=== PATIENT | male | born 1965 | race African-American/Black ===

== ENCOUNTER 2019-09-14 09:39 | Inpatient (IN) | payer OTHER ==
--- NOTE | 2019-09-14 09:59 | BHS.RME ---
Substance Use & Tx History - Substance Use History Alcohol Substance amount: 1 pint vodka + beers Frequency of use: Daily Substance route: Oral Date of Last Use: 09/14/19 (1am) Cocaine- Powder Substance amount: $50 Frequency of use: Daily Substance route: Inhalation (ex: sniffing or snorting) Date of Last Use: 09/14/19 Marijuana/Hashish Substance amount: $10 Frequency of use: Daily Substance route: Smoking Date of Last Use: 09/14/19 Nicotine Substance amount: 1/2 pack Frequency of use: Daily Substance route: Smoking Date of Last Use: 09/14/19 Physical/Psych/Mental Status - Behavior General Behavior: Increased activity (restlessness, agitation) Eye Contact: Normal - Cooperativeness Cooperativeness: Cooperative - Thinking Thought Processes: Tight, Logical, Goal Directed - Physical Health Problems Is patient presently having any pain?: No Does patient presently have any injuries (include location): No Does patient currently have a fever: No Is patient : No CIWA Nausea/Vomitin Muscle Tremors: 4-Moderate,w/Arms Extend Anxiety: 4-Mod. Anxious/Guarded Agitation: 4-Moderately Restless Paroxysmal Sweats: 4-Forehead w/Sweat Beads Orientation: 0-Oriented Tacttile Disturbances: 0-None Auditory Disturbances: 0-None Visual Disturbances: 0-None Headache: 2-Mild CIWA-Ar Total Score: 21
[2019-09-14 11:01] VITALS: BMI 22.6
--- NOTE | 2019-09-14 11:04 | HP ---
CIWA Score Nausea/Vomitin Muscle Tremors: 4-Moderate,w/Arms Extend Anxiety: 4-Mod. Anxious/Guarded Agitation: 4-Moderately Restless Paroxysmal Sweats: 4-Forehead w/Sweat Beads Orientation: 0-Oriented Tacttile Disturbances: 0-None Auditory Disturbances: 0-None Visual Disturbances: 0-None Headache: 2-Mild CIWA-Ar Total Score: 21 - Admission Criteria OASAS Guidelines: Admission for Medically Managed Detox: Requires at least one of the followin. CIWA greater than 12 2. Seizures within the past 24 hours 3. Delirium tremens within the past 24 hours 4. Hallucinations within the past 24 hours 5. Acute intervention needed for co occurring medical disorder 6. Acute intervention needed for co occurring psychiatric disorder 7. Severe withdrawal that cannot be handled at a lower level of care (continued vomiting, continued diarrhea, abnormal vital signs) requiring intravenous medication and/or fluids 8. Admitting History and Physical - Admission Chief Complaint: " I am sick and I need to stop drinking." History of Present Illness: 54 year old male with history of alcohol dependence in moderate to severe withdrawal. Cocaine use disorder, Cannabis use disorder, Nicotine Dependence. He was drinking last night and blacked out and was brought to [facility] where he was not given any meds but referred here for detox. Alcohol: 1 pint vodka and beers, started drinking at age 13 and last used 09/14/19 at 1AM today, blackouts are multiple, endorses the need for eye director property daily. Cocaine: $50 twice weekly, started at 21 [place], last used 09/14/19 at 1AM Marijuan: $10 weekly, started smoking at age 13 and last used today Nicotine: 1/2 pack daily, started at age 12 PMH: Chronic Low Back Pain Psurg: B?L eye surgery for ptosis upper lids, Lft Ing Herniorrhaphy Psych: Depression, Anxiety, Bipolar (no meds- last taken 1 year ago), denies any current suicidal ideation or homicidal ideation. Patient is homeless and in [facility]. He has no legal issues. CIWA=21 He meets criteria for detox due to his poor recovery environment, and untreated psychiatric co-morbidity. History Source: Patient Limitations to Obtaining History: No Limitations - Past Medical History Musculoskeletal: Yes: Chronic low back pain - Past Surgical History Additional Past Surgical History: BlL eye surgery, L Ing Hernia repair - Smoking History Smoking history: Current every day smoker Have you smoked in the past 12 months: Yes Aproximately how many cigarettes per day: 10 - Alcohol/Substance Use Hx Alcohol Use: Yes History of Substance Use: reports: Cocaine, Marijuana - Social History Usual Living Arrangement: Yes: Alone Do you think of yourself as: Straight/Heterosexual ADL: Independent Occupation: Unemployed, construction History of Recent Travel: No Admission [facility] Allergies/Adverse Reactions: Allergies Allergy/AdvReac Type Severity Reaction Status Date / Time amoxicillin Allergy Verified 06/09/18 13:49 Penicillins Allergy Verified 06/09/18 13:48 Exam Limitations: No Limitations - Ebola screening Have you traveled outside of the country in the last 21 days: No Have you had contact with anyone from an Ebola affected area: No Have you been sick,other than usual withdrawal symptoms: No Do you have a fever: No - Review of Systems Constitutional: Chills, Diaphoresis, Unintentional Wgt. Loss EENT: reports: No Symptoms Reported Respiratory: reports: No Symptoms reported Cardiac: reports: No Symptoms Reported GI: reports: No Symptoms Reported : reports: No Symptoms Reported Musculoskeletal: reports: No Symptoms Reported Integumentary: reports: No Symptoms Reported Neuro: reports: No Symptoms reported Endocrine: reports: No Symptoms Reported Hematology: reports: No Symptoms Reported Psychiatric: reports: Judgement Intact, Mood/Affect Appropiate, Orientated x3, Agitated, Anxious, Depressed Other Systems: Reviewed and Negative Patient History - Patient Medical History Hx Anemia: No Hx Asthma: No Hx Chronic Obstructive Pulmonary Disease (COPD): No Hx Cancer: No Hx Cardiac Disorders: No Hx Congestive Heart Failure: No Hx Hypertension: No Hx Hypercholesterolemia: No Hx Pacemaker: No HX Cerebrovascular Accident: No Hx Seizures: No Hx Dementia: No Hx Diabetes: No Hx Gastrointestinal Disorders: No Hx Liver Disease: No Hx Genitourinary Disorders: No Hx Sexually Transmitted Disorders: No Hx Renal Disease (ESRD): No Hx Thyroid Disease: No Hx Human Immunodeficiency Virus (HIV): No (last 05/16 negative) Hx Hepatitis C: No Hx Depression: No Hx Suicide Attempt: No Hx Bipolar Disorder: No Hx Schizophrenia: No - Patient Surgical History Hx Abdominal Surgery: Yes (left inguinal hernia repair in 1999 X2) - PPD History Previous Implant?: Yes Documented Results: Positive w/o proof Implanted On Prior [facility] Admission?: No PPD to be Administered?: Yes - Smoking Cessation Smoking history: Current every day smoker Have you smoked in the past 12 months: Yes Aproximately how many cigarettes per day: 10 Cigars Per Day: 0 Hx Chewing Tobacco Use: No Initiated information on smoking cessation: Yes 'Breaking Loose' booklet given: 09/14/19 - Substances abused Alcohol Substance route: Oral Frequency: Daily Amount used: 1 pint vodka + Beers Age of first use: 13 Date of last use: 09/14/19 Cocaine Substance route: Inhalation Frequency: 1-2 times per week Amount used: $50 Age of first use: 21 Date of last use: 09/14/19 Marijuana/Hashish Substance route: Smoking Frequency: 1-2 times per week Amount used: $10 Age of first use: 13 Date of last use: 09/14/19 Admission Physical Exam S - Physical General Appearance: Yes: Moderate Distress, Severe Distress, Thin, Tremorous, Irritable, Sweating, Anxious HEENTM: Yes: EOMI, Hearing grossly Normal, Normal ENT Inspection, Normocephalic, Normal Voice, ANTHONY, Pharynx Normal, Tm's normal Respiratory: Yes: Chest Non-Tender, Lungs Clear, Normal Breath Sounds, No Respiratory Distress, No Accessory Muscle Use Neck: Yes: No masses,lesions,Nodules, Supple, Trachea in good position Breast: Yes: Within Normal Limits Cardiology: Yes: Regular Rhythm, S1, S2, Tachycardia Abdominal: Yes: Normal Bowel Sounds, Non Tender, Flat, Soft Genitourinary: Yes: Within Normal Limits, Other (scar fron Left Ing Hernia repair) Back: Yes: Normal Inspection Musculoskeletal: Yes: full range of Motion, Gait Steady, Pelvis Stable Extremities: Yes: Normal Capillary Refill, Normal Range of Motion, Non-Tender Neurological: Yes: harness placer II-XII NML intact, Fully Oriented, Alert, Motor Strength 5/5, Normal Mood/Affect, Normal Response Integumentary: Yes: Normal Color, Dry, Warm Lymphatic: Yes: Within Normal Limits - Diagnostic (1) Depression Current Visit: Yes Status: Acute (2) Alcohol dependence with uncomplicated withdrawal Current Visit: No Status: Acute (3) Cocaine dependence Current Visit: Yes Status: Acute (4) Nicotine dependence Current Visit: Yes Status: Acute (5) Positive PPD Current Visit: Yes Status: Chronic (6) Bipolar 1 disorder Current Visit: Yes Status: Acute Cleared for Admission BHS - Detox or Rehab [facility] Level of Care: Medically Managed Detox Regimen/Protocol: Librium Claeared for Rehab Admission: No Screened but not Admitted - Documentation of Visit Screened but not Admitted: No Breathalyzer - Breathalyzer Breathalyzer: 0 (1 am) Urine Drug Screen - Test Device Lot number: [id number] Expiration date: 01/28/20 - Control Is test valid?: Yes - Results Drug screen NEGATIVE: No Urine drug screen results: SEB-Cocaine Inpatient Rehab Admission - Rehab Decision to Admit Inpatient rehab admission?: No
[2019-09-14] MEDS ORDERED: MENTHOL/PHENOL 1 EACH UD MM PRN (11:11)
[2019-09-14] MEDS ORDERED: METHOCARBAMOL 500 MG TABLET PO PRN (11:11)
[2019-09-14] MEDS ORDERED: IBUPROFEN 400 MG TABLET (FP) PO PRN (11:11)
[2019-09-14] MEDS ORDERED: chlordiazePOXIDE HCL 25 MG CAPSULE PO PRN (11:11)
[2019-09-14] MEDS ORDERED: MAGNESIUM HYDROX 2400MG/30ML ORAL SUSPENSION 30 ML CUP PO PRN (11:11)
[2019-09-14] MEDS ORDERED: ONDANSETRON *ODT* 4 MG TABLET SL ONE (11:11)
[2019-09-14] MEDS ORDERED: BISMUTH SUBSALICYLATE 524 MG/30 ML UD PO PRN (11:11)
[2019-09-14] MEDS ORDERED: MAGNESIUM CITRATE 300 ML BOTTLE PO PRN (11:11)
[2019-09-14] MEDS ORDERED: NICOTINE POLACRILEX 2 MG GUM BUC PRN (11:11)
[2019-09-14] MEDS ORDERED: MAG HYDROX/AL HYDROX/SIMETH 30 ML UNIT-DOSE CUP PO PRN (11:11)
[2019-09-14] MEDS ORDERED: ACETAMINOPHEN 325 MG TABLET (FP) PO PRN ×2 (11:11)
[2019-09-14] MEDS ORDERED: chlordiazePOXIDE HCL 25 MG CAPSULE PO STA (11:15)
[2019-09-14] MEDS ORDERED: AMMONIUM LACTATE 12% LOTION 225 GM BOTTLE TP SCH (11:15)
[2019-09-14] MEDS: NICOTINE 7 MG/24 HOURS TOPICAL PATCH TD SCH (12:31)
[2019-09-14] MEDS: PRENATAL VITAMINS W/ FOLIC ACID TABLET (FP) PO SCH (12:31)
[2019-09-14] MEDS ORDERED: AMMONIUM LACTATE 12% LOTION 225 GM BOTTLE TP PRN (13:00)
[2019-09-14] MEDS: chlordiazePOXIDE HCL 25 MG CAPSULE PO SCH ×3 (13:37→22:23)
[2019-09-14] MEDS: hydrOXYzine PAMOATE 25 MG CAPSULE (FP) PO SCH ×3 (13:42→22:23)
[2019-09-14] MEDS: PANTOPRAZOLE 40 MG TABLET PO SCH (13:42)
--- NOTE | 2019-09-14 14:19 | CONSULT ---
[facility] Psychiatric Consult - Data Date of interview: 09/14/19 Admission source: [facility] Identifying data: First visit to [facility] and admission to [address] [place] [address] for this 54 y/o AA male self-referred for detoxification treatment. JENNIFER issues : alcohol, cannabis, cocaine, nicotine. Patient is single, no dependents, homeless (halfway), unemployed and supported on SSI benefits. Substance Abuse History: Discussed with the patient. JENNIFER profile as follows : Smoking history: Current every day smoker. Have you smoked in the past 12 months: Yes. Aproximately how many cigarettes per day: 10. Cigars Per Day: 0. Hx Chewing Tobacco Use: No. Initiated information on smoking cessation: Yes. 'Breaking Loose' booklet given: 09/14/19. - Substances abused. Alcohol. Substance route: Oral. Frequency: Daily. Amount used: 1 pint vodka + Beers. Age of first use: 13. Date of last use: 09/14/19. Cocaine. Substance route: Inhalation. Frequency: 1-2 times per week. Amount used: $50. Age of first use: 21. Date of last use: 09/14/19. Marijuana/Hashish. Substance route: Smoking. Frequency: 1-2 times per week. Amount used: $10. Age of first use: 13. Date of last use: 09/14/19 Medical History: Medical profile is remarkable for history of eye surgery (both eyes) for bilateral ptosis, chronic lumbar pain (herniated discs L1-L5) and antecedent of left inguinal herniorraphy (1999). Psychiatric History: Patient aknowledges history of psychiatric hospitalizations but he declines to provide names of institutions or circumstances of admission. Mr Moreira is a marginally cooperative and irritable historian. " They keep on asking me the same questions. I can barely catch some sleep." He does not recall his psychiatric diagnosis. " I don't know. I don't have a mental problem." Patient denies being on psychiatric medications at this time. He does, however, report that trazodone has been prescribed recently to him by " a psychiatrist somewhere." No current contact with OPD care. He denies history of suicide attempts. Physical/Sexual Abuse/Trauma History: Not discussed. Patient declines. Additional Comment: Urine drug screen results: SEB-Cocaine. Noted. Mental Status Exam - Mental Status Exam Alert and Oriented to: Time, Place, Person Cognitive Function: Good Patient Appearance: Unkempt, Disheveled Mood: Hostile, Nervous, Withdrawn, Irritable Affect: Mood Congruent, Constricted Patient Behavior: Fatigued, Uncooperative, Guarded Speech Pattern: Clear Voice Loudness: Normal Thought Process: Intact, Goal Oriented Thought Disorder: Not Present Hallucinations: Denies Suicidal Ideation: Denies Homicidal Ideation: Denies Insight/Judgement: Poor Sleep: Poorly (wants trazodone ), Difficulty falling asleep Gait/Station: Other (not observed; in bed for entire length of interview) Psychiatric Findings - Problem List ([place] 1, 2,3) (1) Alcohol dependence with uncomplicated withdrawal Current Visit: Yes Status: Acute (2) Cocaine dependence Current Visit: Yes Status: Chronic (3) Nicotine dependence Current Visit: Yes Status: Chronic (4) Substance induced mood disorder Current Visit: Yes Status: Chronic (5) Insomnia Current Visit: Yes Status: Chronic - Initial Treatment Plan Initial Treatment Plan: Psychoeducation. Support. Sleep hygiene. Detoxification in progress. At the patient's request, trazodone 100 mg po hs. Ordered. Side effects/benefits are discussed with patient. Made aware of the risk of priapism. Mr Moreira grants his consent (verbal) for trazodone. Observation.
[2019-09-14 14:56] LABS: MCH 27.6 pg (25.7-33.7); MCHC 31.8 g/dl (32.0-35.9); MEAN CELL VOLUME 86.8 fl (80-96); MEAN PLT VOLUME 9.4 fl (7.5-11.1); PLATELET COUNT 225 K/MM3 (134-434); RBC 5.07 M/mm3 (4.00-5.60); RDW 15.8 % (11.9-15.9)
[2019-09-14 15:14] LABS: BILIRUBIN,TOTAL 0.8 mg/dL (0.2-1); BLOOD UREA NITROGEN 16.9 mg/dL (7-18); CALCIUM 10.1 mg/dL (8.5-10.1); CREATININE 1.2 mg/dL (0.55-1.3); POTASSIUM 4.4 mmol/L (3.5-5.1); TOT PROT 7.7 g/dl (6.4-8.2)
[2019-09-14] MEDS ORDERED: PATIENT'S OWN MEDICATION (NON-FORMULARY) (Ranitidine [Zantac -] 150 MG) PO SCH (22:00)
[2019-09-14] MEDS: traZODone HCL 100 MG TABLET (FP) PO SCH (22:23)
[2019-09-14] MEDS: MELATONIN 5 MG TABLETS PO SCH (22:23)
[2019-09-14] MEDS: THIAMINE HCL 100 MG TABLET (FP) PO SCH (22:23)
[2019-09-15] MEDS: chlordiazePOXIDE HCL 25 MG CAPSULE PO SCH ×4 (06:13→22:18)
[2019-09-15] MEDS: hydrOXYzine PAMOATE 25 MG CAPSULE (FP) PO SCH ×5 (06:13→22:17)
[2019-09-15] MEDS: PANTOPRAZOLE 40 MG TABLET PO SCH (10:23)
[2019-09-15] MEDS: NICOTINE 7 MG/24 HOURS TOPICAL PATCH TD SCH (10:23)
[2019-09-15] MEDS: PRENATAL VITAMINS W/ FOLIC ACID TABLET (FP) PO SCH (10:23)
--- NOTE | 2019-09-15 12:56 | PN ---
S CIWA - CIWA Score Nausea/Vomitin-No Nausea/No Vomiting Muscle Tremors: None Anxiety: 3 Agitation: 0-Normal Activity Paroxysmal Sweats: 3 Orientation: 0-Oriented Tacttile Disturbances: 0-None Auditory Disturbances: 0-None Visual Disturbances: 0-None Headache: 2-Mild CIWA-Ar Total Score: 8 BHS Progress Note (SOAP) Subjective: c/o anxiety, sweats, headache, and muscle aches. Objective: 09/15/19 12:49 Vital Signs 09/15/19 09/15/19 05:50 08:42 Temperature 97.7 F 97.7 F Pulse Rate 58 L 62 Respiratory 18 18 Rate Blood Pressure 94/60 126/74 O2 Sat by Pulse 100 Oximetry (%) Laboratory Last Values WBC 6.0 K/mm3 (4.0-10.0) 09/14/19 12:00 RBC 5.07 M/mm3 (4.00-5.60) 09/14/19 12:00 Hgb 14.0 GM/dL (11.7-16.9) 09/14/19 12:00 Hct 44.0 % (35.4-49) 09/14/19 12:00 MCV 86.8 fl (80-96) 09/14/19 12:00 MCH 27.6 pg (25.7-33.7) 09/14/19 12:00 MCHC 31.8 g/dl (32.0-35.9) L 09/14/19 12:00 RDW 15.8 % (11.9-15.9) 09/14/19 12:00 Plt Count 225 K/MM3 (134-434) 09/14/19 12:00 MPV 9.4 fl (7.5-11.1) 09/14/19 12:00 Sodium 140 mmol/L (136-145) 09/14/19 12:00 Potassium 4.4 mmol/L (3.5-5.1) 09/14/19 12:00 Chloride 101 mmol/L (98-107) 09/14/19 12:00 Carbon Dioxide 29 mmol/L (21-32) 09/14/19 12:00 Anion Gap 10 MMOL/L (8-16) 09/14/19 12:00 BUN 16.9 mg/dL (7-18) 09/14/19 12:00 Creatinine 1.2 mg/dL (0.55-1.3) 09/14/19 12:00 Est GFR (CKD-EPI)AfAm 77.88 09/14/19 12:00 Est GFR (CKD-EPI)NonAf 67.19 09/14/19 12:00 Random Glucose 66 mg/dL (74-106) L 09/14/19 12:00 Calcium 10.1 mg/dL (8.5-10.1) 09/14/19 12:00 Total Bilirubin 0.8 mg/dL (0.2-1) 09/14/19 12:00 AST 19 U/L (15-37) 09/14/19 12:00 ALT 21 U/L (13-61) 09/14/19 12:00 Alkaline Phosphatase 96 U/L (45-117) 09/14/19 12:00 Total Protein 7.7 g/dl (6.4-8.2) 09/14/19 12:00 Albumin 4.0 g/dl (3.4-5.0) 09/14/19 12:00 Syphilis Serology Non-reactive (NONREACTIVE) 09/14/19 12:00 Labs noted. Assessment: 09/15/19 12:49 Vital Signs 09/15/19 09/15/19 05:50 08:42 Temperature 97.7 F 97.7 F Pulse Rate 58 L 62 Respiratory 18 18 Rate Blood Pressure 94/60 126/74 O2 Sat by Pulse 100 Oximetry (%) Laboratory Last Values WBC 6.0 K/mm3 (4.0-10.0) 09/14/19 12:00 RBC 5.07 M/mm3 (4.00-5.60) 09/14/19 12:00 Hgb 14.0 GM/dL (11.7-16.9) 09/14/19 12:00 Hct 44.0 % (35.4-49) 09/14/19 12:00 MCV 86.8 fl (80-96) 09/14/19 12:00 MCH 27.6 pg (25.7-33.7) 09/14/19 12:00 MCHC 31.8 g/dl (32.0-35.9) L 09/14/19 12:00 RDW 15.8 % (11.9-15.9) 09/14/19 12:00 Plt Count 225 K/MM3 (134-434) 09/14/19 12:00 MPV 9.4 fl (7.5-11.1) 09/14/19 12:00 Sodium 140 mmol/L (136-145) 09/14/19 12:00 Potassium 4.4 mmol/L (3.5-5.1) 09/14/19 12:00 Chloride 101 mmol/L (98-107) 09/14/19 12:00 Carbon Dioxide 29 mmol/L (21-32) 09/14/19 12:00 Anion Gap 10 MMOL/L (8-16) 09/14/19 12:00 BUN 16.9 mg/dL (7-18) 09/14/19 12:00 Creatinine 1.2 mg/dL (0.55-1.3) 09/14/19 12:00 Est GFR (CKD-EPI)AfAm 77.88 09/14/19 12:00 Est GFR (CKD-EPI)NonAf 67.19 09/14/19 12:00 Random Glucose 66 mg/dL (74-106) L 09/14/19 12:00 Calcium 10.1 mg/dL (8.5-10.1) 09/14/19 12:00 Total Bilirubin 0.8 mg/dL (0.2-1) 09/14/19 12:00 AST 19 U/L (15-37) 09/14/19 12:00 ALT 21 U/L (13-61) 09/14/19 12:00 Alkaline Phosphatase 96 U/L (45-117) 09/14/19 12:00 Total Protein 7.7 g/dl (6.4-8.2) 09/14/19 12:00 Albumin 4.0 g/dl (3.4-5.0) 09/14/19 12:00 Syphilis Serology Non-reactive (NONREACTIVE) 09/14/19 12:00 Labs noted. Plan: continue detox.
[2019-09-15] MEDS: MELATONIN 5 MG TABLETS PO SCH (22:17)
[2019-09-15] MEDS: traZODone HCL 100 MG TABLET (FP) PO SCH (22:17)
[2019-09-15] MEDS: THIAMINE HCL 100 MG TABLET (FP) PO SCH (22:19)
[2019-09-16] MEDS: hydrOXYzine PAMOATE 25 MG CAPSULE (FP) PO SCH ×5 (05:58→22:31)
[2019-09-16] MEDS: chlordiazePOXIDE HCL 25 MG CAPSULE PO SCH ×4 (05:58→22:27)
[2019-09-16] MEDS: NICOTINE 7 MG/24 HOURS TOPICAL PATCH TD SCH (10:15)
[2019-09-16] MEDS: PRENATAL VITAMINS W/ FOLIC ACID TABLET (FP) PO SCH (10:15)
[2019-09-16] MEDS: PANTOPRAZOLE 40 MG TABLET PO SCH (10:15)
--- NOTE | 2019-09-16 11:37 | PN ---
S CIWA - CIWA Score Nausea/Vomitin-Mild Nausea/No Vomiting Muscle Tremors: 2 Anxiety: 3 Agitation: 1-Slight > Activity Paroxysmal Sweats: No Perspiration Orientation: 0-Oriented Tacttile Disturbances: 0-None Auditory Disturbances: 0-None Visual Disturbances: 0-None Headache: 0-None Present CIWA-Ar Total Score: 7 S Progress Note (SOAP) Subjective: 54 years old male admitted on 09/14/19 for alcohol withdrawal sx management treating with librium detox regiment feeling better today less tremor ate breakfast and lunch in room social with peers in day room encourage discussing aftercare with staff [facility] as alcohol recovery [facility] Objective: 09/16/19 11:38 Vital Signs - 24 hr 09/15/19 09/15/19 09/15/19 12:33 16:36 20:39 Temperature 97.6 F 97.5 F L 97.1 F L Pulse Rate 56 L 61 56 L Respiratory 16 18 17 Rate Blood Pressure 102/65 97/62 101/67 O2 Sat by Pulse 99 99 Oximetry (%) 09/16/19 09/16/19 05:37 08:31 Temperature 97.5 F L 97.3 F L Pulse Rate 57 L 55 L Respiratory 16 18 Rate Blood Pressure 99/58 L 100/65 O2 Sat by Pulse 97 Oximetry (%) Laboratory Tests 09/14/19 09/14/19 09/14/19 12:00 12:00 12:00 WBC 6.0 RBC 5.07 Hgb 14.0 Hct 44.0 MCV 86.8 MCH 27.6 MCHC 31.8 L RDW 15.8 Plt Count 225 MPV 9.4 Sodium 140 Potassium 4.4 Chloride 101 Carbon Dioxide 29 Anion Gap 10 BUN 16.9 Creatinine 1.2 Est GFR (CKD-EPI)AfAm 77.88 Est GFR (CKD-EPI)NonAf 67.19 Random Glucose 66 L Calcium 10.1 Total Bilirubin 0.8 AST 19 ALT 21 Alkaline Phosphatase 96 Total Protein 7.7 Albumin 4.0 Syphilis Serology Non-reactive COVID-19 ([facility]) 09/14/19 12:10 WBC RBC Hgb Hct MCV MCH MCHC RDW Plt Count MPV Sodium Potassium Chloride Carbon Dioxide Anion Gap BUN Creatinine Est GFR (CKD-EPI)AfAm Est GFR (CKD-EPI)NonAf Random Glucose Calcium Total Bilirubin AST ALT Alkaline Phosphatase Total Protein Albumin Syphilis Serology COVID-19 (SUSY) Not detected lab noted Assessment: 09/16/19 11:39 alcohol withdrawal Plan: librium regiment
[2019-09-16] MEDS: traZODone HCL 100 MG TABLET (FP) PO SCH (22:27)
[2019-09-16] MEDS: MELATONIN 5 MG TABLETS PO SCH (22:30)
[2019-09-16] MEDS: THIAMINE HCL 100 MG TABLET (FP) PO SCH (22:30)
[2019-09-17] MEDS ORDERED: chlordiazePOXIDE HCL 10 MG CAPSULE PO PRN
[2019-09-17] MEDS: chlordiazePOXIDE HCL 10 MG CAPSULE PO SCH ×4 (07:15→22:27)
[2019-09-17] MEDS: hydrOXYzine PAMOATE 25 MG CAPSULE (FP) PO SCH ×5 (07:16→22:28)
[2019-09-17] MEDS: NICOTINE 7 MG/24 HOURS TOPICAL PATCH TD SCH (10:28)
[2019-09-17] MEDS: PANTOPRAZOLE 40 MG TABLET PO SCH (10:28)
[2019-09-17] MEDS: PRENATAL VITAMINS W/ FOLIC ACID TABLET (FP) PO SCH (10:29)
--- NOTE | 2019-09-17 12:49 | PN ---
S CIWA - CIWA Score Nausea/Vomitin-No Nausea/No Vomiting Muscle Tremors: 1-None Visible, but [place] Anxiety: 1-Mildly Anxious Agitation: 0-Normal Activity Paroxysmal Sweats: 1-Minimal Palms Moist Orientation: 0-Oriented Tacttile Disturbances: 1-Very Mild Itch/Numbness Auditory Disturbances: 0-None Visual Disturbances: 2-Mild Sensitivity Headache: 0-None Present CIWA-Ar Total Score: 6 BHS Progress Note (SOAP) Subjective: 54 years old male admitted on 09/14/19 for alcohol withdrawal sx management treating with librium regiment ate breakfast and lunch in room social with peers in day room less tremor mild anxiety discussed aftercare with staff Objective: 09/17/19 12:53 Vital Signs - 24 hr 09/16/19 09/16/19 09/17/19 17:07 20:53 06:51 Temperature 98.2 F 97.5 F L 98.0 F Pulse Rate 80 67 55 L Respiratory 18 16 18 Rate Blood Pressure 127/72 104/67 99/50 L O2 Sat by Pulse 98 100 97 Oximetry (%) 09/17/19 08:52 Temperature 97.3 F L Pulse Rate 64 Respiratory 16 Rate Blood Pressure 81/50 L O2 Sat by Pulse Oximetry (%) 09/17/19 12:54 Laboratory Tests 09/14/19 09/14/19 09/14/19 12:00 12:00 12:00 WBC 6.0 RBC 5.07 Hgb 14.0 Hct 44.0 MCV 86.8 MCH 27.6 MCHC 31.8 L RDW 15.8 Plt Count 225 MPV 9.4 Sodium 140 Potassium 4.4 Chloride 101 Carbon Dioxide 29 Anion Gap 10 BUN 16.9 Creatinine 1.2 Est GFR (CKD-EPI)AfAm 77.88 Est GFR (CKD-EPI)NonAf 67.19 Random Glucose 66 L Calcium 10.1 Total Bilirubin 0.8 AST 19 ALT 21 Alkaline Phosphatase 96 Total Protein 7.7 Albumin 4.0 Syphilis Serology Non-reactive COVID-19 ([facility]USY) 09/14/19 12:10 WBC RBC Hgb Hct MCV MCH MCHC RDW Plt Count MPV Sodium Potassium Chloride Carbon Dioxide Anion Gap BUN Creatinine Est GFR (CKD-EPI)AfAm Est GFR (CKD-EPI)NonAf Random Glucose Calcium Total Bilirubin AST ALT Alkaline Phosphatase Total Protein Albumin Syphilis Serology COVID-19 (SUSY) Not detected lab noted Assessment: 09/17/19 12:54 alcohol withdrawal Plan: librium regiment CIWA Score - CIWA Score Nausea/Vomitin-No Nausea/No Vomiting Muscle Tremors: 1-None Visible, but [place] Anxiety: 1-Mildly Anxious Agitation: 0-Normal Activity Paroxysmal Sweats: 1-Minimal Palms Moist Orientation: 0-Oriented Tacttile Disturbances: 1-Very Mild Itch/Numbness Auditory Disturbances: 0-None Visual Disturbances: 2-Mild Sensitivity Headache: 0-None Present CIWA-Ar Total Score: 6
[2019-09-17] MEDS: traZODone HCL 100 MG TABLET (FP) PO SCH (22:26)
[2019-09-17] MEDS: MELATONIN 5 MG TABLETS PO SCH (22:28)
[2019-09-17] MEDS: THIAMINE HCL 100 MG TABLET (FP) PO SCH (22:29)
[2019-09-18] MEDS: chlordiazePOXIDE HCL 10 MG CAPSULE PO SCH ×2 (06:58→17:22)
[2019-09-18] MEDS: hydrOXYzine PAMOATE 25 MG CAPSULE (FP) PO SCH ×5 (06:58→22:30)
--- NOTE | 2019-09-18 10:01 | PN ---
S CIWA - CIWA Score Nausea/Vomitin-No Nausea/No Vomiting Muscle Tremors: 1-None Visible, but [place] Anxiety: 1-Mildly Anxious Agitation: 0-Normal Activity Paroxysmal Sweats: No Perspiration Orientation: 0-Oriented Tacttile Disturbances: 0-None Auditory Disturbances: 0-None Visual Disturbances: 1-Very Mild Sensitivity Headache: 0-None Present CIWA-Ar Total Score: 3 BHS Progress Note (SOAP) Subjective: 54 years old male admitted on 09/14/19 for alcohol withdrawal sx management treating with librium detox regiment ate breakfast in room social with peers in day room discussing aftercare with staff mr macedo prefers to go to [email or web address] Objective: 09/18/19 10:03 Vital Signs - 24 hr 09/17/19 09/17/19 09/17/19 12:40 16:26 20:16 Temperature 98.4 F 97.5 F L 97.7 F Pulse Rate 66 65 70 Respiratory 18 16 18 Rate Blood Pressure 106/53 L 105/59 L 107/66 O2 Sat by Pulse 98 96 99 Oximetry (%) 09/18/19 09/18/19 06:24 08:53 Temperature 97.7 F 97.6 F Pulse Rate 64 67 Respiratory 18 18 Rate Blood Pressure 104/60 119/75 O2 Sat by Pulse 99 99 Oximetry (%) Laboratory Tests 09/14/19 09/14/19 09/14/19 12:00 12:00 12:00 WBC 6.0 RBC 5.07 Hgb 14.0 Hct 44.0 MCV 86.8 MCH 27.6 MCHC 31.8 L RDW 15.8 Plt Count 225 MPV 9.4 Sodium 140 Potassium 4.4 Chloride 101 Carbon Dioxide 29 Anion Gap 10 BUN 16.9 Creatinine 1.2 Est GFR (CKD-EPI)AfAm 77.88 Est GFR (CKD-EPI)NonAf 67.19 Random Glucose 66 L Calcium 10.1 Total Bilirubin 0.8 AST 19 ALT 21 Alkaline Phosphatase 96 Total Protein 7.7 Albumin 4.0 Syphilis Serology Non-reactive COVID-19 ([facility]) 09/14/19 12:10 WBC RBC Hgb Hct MCV MCH MCHC RDW Plt Count MPV Sodium Potassium Chloride Carbon Dioxide Anion Gap BUN Creatinine Est GFR (CKD-EPI)AfAm Est GFR (CKD-EPI)NonAf Random Glucose Calcium Total Bilirubin AST ALT Alkaline Phosphatase Total Protein Albumin Syphilis Serology COVID-19 (SUSY) Not detected lab noted Assessment: 09/18/19 10:03 alcohol withdrawal Plan: librium regiment
[2019-09-18] MEDS: PANTOPRAZOLE 40 MG TABLET PO SCH (10:10)
[2019-09-18] MEDS: PRENATAL VITAMINS W/ FOLIC ACID TABLET (FP) PO SCH (10:10)
[2019-09-18] MEDS: NICOTINE 7 MG/24 HOURS TOPICAL PATCH TD SCH (10:10)
[2019-09-18] MEDS: traZODone HCL 100 MG TABLET (FP) PO SCH (22:26)
[2019-09-18] MEDS: MELATONIN 5 MG TABLETS PO SCH (22:30)
[2019-09-18] MEDS: THIAMINE HCL 100 MG TABLET (FP) PO SCH (22:30)
[2019-09-19] MEDS ORDERED: chlordiazePOXIDE HCL 10 MG CAPSULE PO ONE (05:00)
[2019-09-19] MEDS: hydrOXYzine PAMOATE 25 MG CAPSULE (FP) PO SCH ×3 (05:33→09:23)
[2019-09-19 09:04] VITALS: BP 125/68; PULSE 73; TEMP 97.1
[2019-09-19] MEDS: PRENATAL VITAMINS W/ FOLIC ACID TABLET (FP) PO SCH (09:23)
[2019-09-19] MEDS: PANTOPRAZOLE 40 MG TABLET PO SCH (09:23)
[2019-09-19] MEDS: NICOTINE 7 MG/24 HOURS TOPICAL PATCH TD SCH (09:23)
--- NOTE | 2019-09-19 11:27 | DS ---
[facility] Detox Discharge Summary Admission Date: 09/14/19 Discharge Date: 09/19/19 - History Present History: Alcohol Dependence Additional Comments: 54 years old male admitted on 09/18/19 for alcohol withdrawal sx management treated with librium regiment seen by psychiatrist sonia helms mr macedo has completed the librium regimen and is tolerated well alert oriented x 3 speech clearly coherently ambulating steady gaits respiratory clear lung sounds bilaterally on auscultation abdomen soft flat no rebound tenderness extremities full range of motion Pertinent Past History: time for discharge 48 minutes transferred order from detox to rehab - Physical Exam Results Vital Signs: Vital Signs Temperature 97.1 F L 09/19/19 08:56 Pulse Rate 73 09/19/19 08:56 Respiratory Rate 18 09/19/19 08:56 Blood Pressure 125/68 09/19/19 08:56 O2 Sat by Pulse Oximetry (%) 99 09/19/19 06:14 Pertinent Admission Physical Exam Findings: alcohol withdrawal Laboratory Tests 09/14/19 09/14/19 09/14/19 12:00 12:00 12:00 WBC 6.0 RBC 5.07 Hgb 14.0 Hct 44.0 MCV 86.8 MCH 27.6 MCHC 31.8 L RDW 15.8 Plt Count 225 MPV 9.4 Sodium 140 Potassium 4.4 Chloride 101 Carbon Dioxide 29 Anion Gap 10 BUN 16.9 Creatinine 1.2 Est GFR (CKD-EPI)AfAm 77.88 Est GFR (CKD-EPI)NonAf 67.19 Random Glucose 66 L Calcium 10.1 Total Bilirubin 0.8 AST 19 ALT 21 Alkaline Phosphatase 96 Total Protein 7.7 Albumin 4.0 Syphilis Serology Non-reactive COVID-19 ([facility]) 09/14/19 12:10 WBC RBC Hgb Hct MCV MCH MCHC RDW Plt Count MPV Sodium Potassium Chloride Carbon Dioxide Anion Gap BUN Creatinine Est GFR (CKD-EPI)AfAm Est GFR (CKD-EPI)NonAf Random Glucose Calcium Total Bilirubin AST ALT Alkaline Phosphatase Total Protein Albumin Syphilis Serology COVID-19 ([facility]) Not detected lab noted - Treatment Hospital Course: Detox Protocol Followed, Detoxed Safely, Responded well, Discharged Condition Good, Rehab Referral Accepted Patient has Accepted [facility] Referral [facility] - Medication Discharge Medications: Ambulatory Orders NK [No Known Home Medication] 09/14/19 - Diagnosis (1) Alcohol dependence with uncomplicated withdrawal Status: Acute (2) Nicotine dependence Status: Acute Qualifiers: Nicotine product type: cigarettes Substance use status: in withdrawal Qualified Code(s): F17.213 - Nicotine dependence, cigarettes, with withdrawal (3) Positive PPD Status: Resolved (4) Substance induced mood disorder Status: Suspected - AMA Did Patient Leave Against Medical Advice: No CIWA Score - CIWA Score Nausea/Vomitin-No Nausea/No Vomiting Muscle Tremors: 1-None Visible, but [place] Anxiety: 1-Mildly Anxious Agitation: 0-Normal Activity Paroxysmal Sweats: No Perspiration Orientation: 0-Oriented Tacttile Disturbances: 0-None Auditory Disturbances: 0-None Visual Disturbances: 0-None Headache: 0-None Present CIWA-Ar Total Score: 2
== END 2019-09-19 10:30 | disposition other institution (70) | DRG 774 ==
LOC: YASAS 09:39 → Y3N 11:53
PROVIDERS: ADMIT Allergy & Immunology; ATTEND Allergy & Immunology
PROC: HZ2ZZZZ Detoxification Services for Substance Abuse Treatment (ICD-10-PCS; principal; 2019-09-14)
DX: F10.230 Alcohol dependence with withdrawal, uncomplicated (principal); F14.20 Cocaine dependence, uncomplicated; F12.20 Cannabis dependence, uncomplicated; F17.213 Nicotine dependence, cigarettes, with withdrawal; F19.24 Other psychoactive substance dependence with psychoactive substance-induced mood disorder; F41.8 Other specified anxiety disorders; G47.00 Insomnia, unspecified; M51.26 Other intervertebral disc displacement, lumbar region; G89.29 Other chronic pain; Z98.890 Other specified postprocedural states; R76.11 Nonspecific reaction to tuberculin skin test without active tuberculosis; Z88.0 Allergy status to penicillin; Z88.1 Allergy status to other antibiotic agents; Z56.0 Unemployment, unspecified; Z59.0 Homelessness
CPT/HCPCS: 36415; 71046-TC-FY; 80053; 85027; 86780; U0003

== ENCOUNTER 2019-09-19 10:50 | Inpatient (IN) | payer OTHER ==
[2019-09-19] MEDS ORDERED: guaiFENesin 200 MG/10 ML 10 ML UNIT-DOSE CUPS PO PRN (11:32)
[2019-09-19] MEDS ORDERED: MAGNESIUM HYDROX 2400MG/30ML ORAL SUSPENSION 30 ML CUP PO PRN (11:32)
[2019-09-19] MEDS ORDERED: MAGNESIUM CITRATE 300 ML BOTTLE PO PRN (11:32)
[2019-09-19] MEDS ORDERED: P-EPHED 60MG/TRIPROLIDI 2.5MG TABLET PO PRN (11:32)
[2019-09-19] MEDS ORDERED: LOPERAMIDE HCL 2 MG CAPSULE PO PRN (11:32)
[2019-09-19] MEDS ORDERED: MAG HYDROX/AL HYDROX/SIMETH 30 ML UNIT-DOSE CUP PO PRN (11:32)
[2019-09-19] MEDS ORDERED: NICOTINE POLACRILEX 2 MG GUM BUC PRN (11:32)
[2019-09-19] MEDS ORDERED: ACETAMINOPHEN 325 MG TABLET (FP) PO PRN (11:32)
[2019-09-19] MEDS ORDERED: hydrOXYzine PAMOATE 25 MG CAPSULE (FP) PO PRN (11:32)
[2019-09-19] MEDS ORDERED: IBUPROFEN 400 MG TABLET (FP) PO PRN (11:32)
--- NOTE | 2019-09-19 11:32 | HP ---
[facility] Rehab Assess/Revision - Admission History Admitted to Rehab from: [facility] Date of Admission to Rehab: 09/19/19 - Vital signs Vital Signs: Vital Signs Period Temp Pulse Resp BP Sys/Hanna Pulse Ox Last 24 Hr 97.8 F 75 18 115/74 - Findings Detox History & Physical reviewed: Yes Concur with findings: Yes Comments/Additional Findings: transferred from detox to rehab admission as per protocol Inpatient Rehab Admission - Rehab Decision to Admit Inpatient rehab admission?: Yes - Initial Determination Are CD services needed?: Yes Free of communicable disease: Yes Not in need of hospitalization: Yes - Rehab Admission Criteria Previous failed treatment: Yes Poor recovery environment: Yes Comorbidities: Yes Lacks judgement: Yes Patient is meeting Inpatient Rehab admission criteria:: Yes
--- NOTE | 2019-09-19 12:33 | PN ---
[facility] Progress Note Note: Ensure added to diet. Patient with BMI of 23.6
--- NOTE | 2019-09-19 15:21 | CONSULT ---
[facility] Psychiatric Consult - Data Date of interview: 09/19/19 Admission source: Transfer from [address] [place] [address]. Identifying data: Patient completed detoxification treatment at [address] [place] [address]. He is now transferre to [address] for continuity of care in rehabilitation for further management of JENNIFER issues (alcohol, cannabis, cocaine, nicotine) and co- morbid mood disorder. Patient is a AA male, single, 54 years of age, no dependents, homeless (assisted), unemployed and supported on SSI benefits. Substance Abuse History: Discussed with the patient. JENNIFER profile as follows : Smoking history: Current every day smoker. Have you smoked in the past 12 months: Yes. Aproximately how many cigarettes per day: 10. Cigars Per Day: 0. Hx Chewing Tobacco Use: No. Initiated information on smoking cessation: Yes. 'Breaking Loose' booklet given: 09/14/19. - Substances abused. Alcohol. Substance route: Oral. Frequency: Daily. Amount used: 1 pint vodka + Beers. Age of first use: 13. Date of last use: 09/14/19. Cocaine. Substance route: Inhalation. Frequency: 1-2 times per week. Amount used: $50. Age of first use: 21. Date of last use: 09/14/19. Marijuana/Hashish. Substance route: Smoking. Frequency: 1-2 times per week. Amount used: $10. Age of first use: 13. Date of last use: 09/14/19 Medical History: Medical profile is remarkable for history of eye surgery (both eyes) for bilateral ptosis, chronic lumbar pain (herniated discs L1-L5) and antecedent of left inguinal herniorraphy (1999). Psychiatric History: Patient aknowledges history of psychiatric hospitalizations but he declines to provide names of institutions or circumstances of admission. Mr Moreira is more cooperative in this interview. He does not wish to discuss personal longitudinal history at this time (formulated in a more casual fashion). Patient consents to take trazodone at bedtime to address chronic insomnia (prescribed recently by community psychiatrists). No current contact with OPD care. He denies history of suicide attempts. Physical/Sexual Abuse/Trauma History: Patient denies. Additional Comment: Urine drug screen results: SEB-Cocaine. Noted on admission to [address] [place] [address]. Mental Status Exam - Mental Status Exam Alert and Oriented to: Time, Place, Person Cognitive Function: Good Patient Appearance: Well Groomed Mood: Hopeful, Euthymic Affect: Appropriate, Normal Range Patient Behavior: Appropriate, Cooperative Speech Pattern: Clear, Appropriate Voice Loudness: Normal Thought Process: Intact, Goal Oriented Thought Disorder: Not Present Hallucinations: Denies Suicidal Ideation: Denies Homicidal Ideation: Denies Insight/Judgement: Good Sleep: Well Appetite: Good Gait/Station: Normal Psychiatric Findings - Problem List ([place] 1, 2,3) (1) Alcohol dependence Current Visit: Yes Status: Chronic (2) Nicotine dependence Current Visit: Yes Status: Chronic Qualifiers: Nicotine product type: cigarettes Substance use status: in withdrawal Qualified Code(s): F17.213 - Nicotine dependence, cigarettes, with withdrawal (3) Cocaine dependence Current Visit: Yes Status: Chronic (4) Insomnia Current Visit: Yes Status: Chronic (5) Substance induced mood disorder Current Visit: No Status: Chronic - Initial Treatment Plan Initial Treatment Plan: Psychoeducation. Sleep hygiene. Rehabilitation. Motivational counseling. Trazodone is resumed with patient's informed consent ( verbal). Observation.
[2019-09-19] MEDS: traZODone HCL 100 MG TABLET (FP) PO SCH (21:44)
[2019-09-19] MEDS: MELATONIN 5 MG TABLETS PO SCH (21:44)
[2019-09-19] MEDS: AMMONIUM LACTATE 12% LOTION 225 GM BOTTLE TP SCH (21:45)
[2019-09-19] MEDS: THIAMINE HCL 100 MG TABLET (FP) PO SCH (21:45)
[2019-09-20] MEDS: PRENATAL VITAMINS W/ FOLIC ACID TABLET (FP) PO SCH (10:04)
[2019-09-20] MEDS: FAMOTIDINE 20 MG TABLET PO SCH ×2 (10:05→21:07)
[2019-09-20] MEDS: NICOTINE 7 MG/24 HOURS TOPICAL PATCH TD SCH (10:05)
[2019-09-20] MEDS: AMMONIUM LACTATE 12% LOTION 225 GM BOTTLE TP SCH ×2 (10:06→21:08)
[2019-09-20] MEDS ORDERED: PT OWN MED DRAWER 7, Y5N ONE (18:43)
[2019-09-20] MEDS: traZODone HCL 100 MG TABLET (FP) PO SCH (21:07)
[2019-09-20] MEDS: MELATONIN 5 MG TABLETS PO SCH (21:07)
[2019-09-20] MEDS: THIAMINE HCL 100 MG TABLET (FP) PO SCH (21:09)
[2019-09-21] MEDS: AMMONIUM LACTATE 12% LOTION 225 GM BOTTLE TP SCH ×2 (10:44→21:51)
[2019-09-21] MEDS ORDERED: PT OWN MED DRAWER 7, Y5N ONE ×3 (10:45→21:51)
[2019-09-21] MEDS: NICOTINE 7 MG/24 HOURS TOPICAL PATCH TD SCH (10:45)
[2019-09-21] MEDS: FAMOTIDINE 20 MG TABLET PO SCH ×2 (10:45→21:50)
[2019-09-21] MEDS: PRENATAL VITAMINS W/ FOLIC ACID TABLET (FP) PO SCH (10:45)
[2019-09-21] MEDS: MELATONIN 5 MG TABLETS PO SCH (21:50)
[2019-09-21] MEDS: THIAMINE HCL 100 MG TABLET (FP) PO SCH (21:50)
[2019-09-21] MEDS: traZODone HCL 100 MG TABLET (FP) PO SCH (21:50)
[2019-09-22] MEDS: FAMOTIDINE 20 MG TABLET PO SCH ×2 (10:13→21:06)
[2019-09-22] MEDS: AMMONIUM LACTATE 12% LOTION 225 GM BOTTLE TP SCH ×2 (10:13→21:06)
[2019-09-22] MEDS: NICOTINE 7 MG/24 HOURS TOPICAL PATCH TD SCH (10:13)
[2019-09-22] MEDS: PRENATAL VITAMINS W/ FOLIC ACID TABLET (FP) PO SCH (10:14)
[2019-09-22] MEDS: MELATONIN 5 MG TABLETS PO SCH (21:06)
[2019-09-22] MEDS: THIAMINE HCL 100 MG TABLET (FP) PO SCH (21:06)
[2019-09-22] MEDS: traZODone HCL 100 MG TABLET (FP) PO SCH (21:06)
[2019-09-23] MEDS: NICOTINE 7 MG/24 HOURS TOPICAL PATCH TD SCH (09:57)
[2019-09-23] MEDS: AMMONIUM LACTATE 12% LOTION 225 GM BOTTLE TP SCH ×2 (09:57→21:49)
[2019-09-23] MEDS: PRENATAL VITAMINS W/ FOLIC ACID TABLET (FP) PO SCH (09:58)
[2019-09-23] MEDS: FAMOTIDINE 20 MG TABLET PO SCH ×2 (09:58→21:49)
[2019-09-23] MEDS: THIAMINE HCL 100 MG TABLET (FP) PO SCH (21:49)
[2019-09-23] MEDS: traZODone HCL 100 MG TABLET (FP) PO SCH (22:13)
[2019-09-23] MEDS: MELATONIN 5 MG TABLETS PO SCH (22:13)
[2019-09-24] MEDS: FAMOTIDINE 20 MG TABLET PO SCH ×2 (11:15→21:07)
[2019-09-24] MEDS: PRENATAL VITAMINS W/ FOLIC ACID TABLET (FP) PO SCH (11:15)
[2019-09-24] MEDS: NICOTINE 7 MG/24 HOURS TOPICAL PATCH TD SCH (11:16)
[2019-09-24] MEDS: AMMONIUM LACTATE 12% LOTION 225 GM BOTTLE TP SCH ×2 (11:17→21:04)
[2019-09-24] MEDS: THIAMINE HCL 100 MG TABLET (FP) PO SCH (21:05)
[2019-09-24] MEDS: MELATONIN 5 MG TABLETS PO SCH (21:07)
[2019-09-24] MEDS: traZODone HCL 100 MG TABLET (FP) PO SCH (21:07)
[2019-09-24] MEDS ORDERED: PT OWN MED DRAWER 7, Y5N ONE (22:20)
[2019-09-25] MEDS: AMMONIUM LACTATE 12% LOTION 225 GM BOTTLE TP SCH ×2 (10:41→22:38)
[2019-09-25] MEDS: NICOTINE 7 MG/24 HOURS TOPICAL PATCH TD SCH (10:43)
[2019-09-25] MEDS: FAMOTIDINE 20 MG TABLET PO SCH ×2 (10:43→22:38)
[2019-09-25] MEDS: PRENATAL VITAMINS W/ FOLIC ACID TABLET (FP) PO SCH (10:43)
[2019-09-25] MEDS ORDERED: PT OWN MED DRAWER 7, Y5N ONE ×2 (10:43→18:26)
[2019-09-25] MEDS: THIAMINE HCL 100 MG TABLET (FP) PO SCH (21:43)
[2019-09-25] MEDS: traZODone HCL 100 MG TABLET (FP) PO SCH (22:38)
[2019-09-25] MEDS: MELATONIN 5 MG TABLETS PO SCH (22:38)
[2019-09-26] MEDS ORDERED: PT OWN MED DRAWER 7, Y5N ONE (08:29)
[2019-09-26] MEDS: AMMONIUM LACTATE 12% LOTION 225 GM BOTTLE TP SCH ×2 (09:56→23:10)
[2019-09-26] MEDS: FAMOTIDINE 20 MG TABLET PO SCH ×2 (09:58→23:10)
[2019-09-26] MEDS: PRENATAL VITAMINS W/ FOLIC ACID TABLET (FP) PO SCH (09:58)
[2019-09-26] MEDS: NICOTINE 7 MG/24 HOURS TOPICAL PATCH TD SCH (09:58)
[2019-09-26] MEDS: traZODone HCL 100 MG TABLET (FP) PO SCH (23:09)
[2019-09-26] MEDS: THIAMINE HCL 100 MG TABLET (FP) PO SCH (23:10)
[2019-09-26] MEDS: MELATONIN 5 MG TABLETS PO SCH (23:10)
[2019-09-27] MEDS: AMMONIUM LACTATE 12% LOTION 225 GM BOTTLE TP SCH ×2 (10:15→21:20)
[2019-09-27] MEDS: PRENATAL VITAMINS W/ FOLIC ACID TABLET (FP) PO SCH (10:17)
[2019-09-27] MEDS: FAMOTIDINE 20 MG TABLET PO SCH ×2 (10:17→22:29)
[2019-09-27] MEDS: NICOTINE 7 MG/24 HOURS TOPICAL PATCH TD SCH (10:17)
[2019-09-27] MEDS ORDERED: PT OWN MED DRAWER 7, Y5N ONE (14:03)
[2019-09-27] MEDS ORDERED: LIDOCAINE 5% TOPICAL PATCH TP SCH (22:00)
[2019-09-27] MEDS: MELATONIN 5 MG TABLETS PO SCH (22:29)
[2019-09-27] MEDS: traZODone HCL 100 MG TABLET (FP) PO SCH (22:29)
[2019-09-27] MEDS: THIAMINE HCL 100 MG TABLET (FP) PO SCH (22:30)
[2019-09-28 06:37] VITALS: BP 126/70; PULSE 64
[2019-09-28] MEDS ORDERED: LIDOCAINE PATCH REMOVAL MC SCH (10:00)
[2019-09-28] MEDS: AMMONIUM LACTATE 12% LOTION 225 GM BOTTLE TP SCH (10:14)
[2019-09-28] MEDS ORDERED: PT OWN MED DRAWER 7, Y5N ONE (10:15)
[2019-09-28] MEDS: NICOTINE 7 MG/24 HOURS TOPICAL PATCH TD SCH (10:16)
[2019-09-28] MEDS: FAMOTIDINE 20 MG TABLET PO SCH (10:16)
[2019-09-28] MEDS: PRENATAL VITAMINS W/ FOLIC ACID TABLET (FP) PO SCH (10:17)
[2019-09-28 20:34] VITALS: TEMP 97.8
--- NOTE | 2019-09-28 21:01 | DS ---
[facility] Rehab Discharge Summary - [facility] Rehab Discharge Summary Admission Date: 09/19/19 Discharge Date: 09/28/19 - History Present History: Alcohol dependence, Cocaine dependence Additional Comments: Nicotine use disorder - Discharge Physical Exam Vital Signs: Vital Signs Temperature 97.8 F 09/28/19 20:33 Pulse Rate 64 09/28/19 06:35 Respiratory Rate 18 09/28/19 06:35 Blood Pressure 126/70 09/28/19 06:35 O2 Sat by Pulse Oximetry (%) 96 09/28/19 20:33 Pertinent Admission Physical Exam Findings: Patient admitted with early remission of alcohol and cocaine. Nicotine use disorder - on NRT. Hx depression and bipolar disorder. - Treatment Discharge Condition: Discharge condition good (Feels stable.) Hospital Course: Tolerated rehab. Feels stable. Alert and oriented. Gait steady. Lungs CTA. Pulse ox = 99% Abd soft and non-tender. Laboratory Last Values HIV 1&2 Ag/Ab, 4th Gen Non reactive (Non Reactive) 09/27/19 07:40 Declined NRT. - Medication Discharge Medications: Ambulatory Orders NK [No Known Home Medication] 09/14/19 - Medication-Assisted Treatment (MAT) Medication-Assisted Treatment (MAT): No - Discharge Instructions Diet, activity, other medical instructions: Diet: Regular Activity: As tolerated Other medical instructions: Encouraged smoking cessation. Encouraged community support groups. - Diagnosis (1) Alcohol use disorder, moderate, in early remission, dependence Status: Acute (2) Cocaine use disorder, moderate, in early remission Status: Acute (3) History of positive PPD Status: Chronic (4) Bipolar 1 disorder Status: Chronic (5) Nicotine dependence Status: Chronic Qualifiers: Nicotine product type: cigarettes Substance use status: uncomplicated Qualified Code(s): F17.210 - Nicotine dependence, cigarettes, uncomplicated - Follow-up Referral Minutes to complete discharge: 30 - AMA Did Patient Leave Against Medical Advice: No
--- NOTE | 2019-09-28 21:02 | PN ---
[facility] Progress Note Note: Requesting discharge. Admitted from detox. Early alcohol and cocaine remission. Nicotine use disorder - on NRT. Tolerating rehab. Feels stable. Alert and oriented. Gait steady. Lungs CTA. Pulse ox = 99% Abd soft and non-tender. Vital Signs - 24 hr 09/28/19 09/28/19 09/28/19 06:35 13:41 20:33 Temperature 98.0 F 97.8 F Pulse Rate 64 Respiratory 18 Rate Blood Pressure 126/70 O2 Sat by Pulse 96 97 96 Oximetry (%) Laboratory Last Values HIV 1&2 Ag/Ab, 4th Gen Non reactive (Non Reactive) 09/27/19 07:40 Plan: Discharge. Encouraged community support groups - declined referral. Offered NRT and declined.
== END 2019-09-28 20:55 | disposition home or self-care (01) | DRG 772 ==
LOC: YASAS 10:50 → Y3W 10:52
PROVIDERS: ADMIT Allergy & Immunology; ATTEND Allergy & Immunology
PROC: HZ42ZZZ Group Counseling for Substance Abuse Treatment, Cognitive-Behavioral (ICD-10-PCS; principal; 2019-09-19)
DX: F10.20 Alcohol dependence, uncomplicated (principal); F14.20 Cocaine dependence, uncomplicated; F17.210 Nicotine dependence, cigarettes, uncomplicated; F19.24 Other psychoactive substance dependence with psychoactive substance-induced mood disorder; F31.89 Other bipolar disorder; R76.11 Nonspecific reaction to tuberculin skin test without active tuberculosis; G47.00 Insomnia, unspecified
CPT/HCPCS: 36415; 87389